=== PATIENT | female | born 1950 | race African-American/Black ===

== ENCOUNTER 2018-11-25 19:35 | Emergency (ER) | payer OTHER ==
[~2018-11-25] VITALS: Ht 157.5 cm; Wt 87.0 kg
[2018-11-26] MEDS ORDERED: ONDANSETRON 4MG ODT PO ONE (01:15)
[2018-11-26] MEDS ORDERED: LOPERAMIDE HCL 2MG CAPSULE PO ONE (01:15)
[2018-11-26 01:42] VITALS: BP 138/77
== END 2018-11-26 01:52 | disposition home or self-care (01) ==
LOC: ER 19:35
DX: R19.7 Diarrhea, unspecified (principal); R11.10 Vomiting, unspecified; I10 Essential (primary) hypertension; Z88.5 Allergy status to narcotic agent; Z98.890 Other specified postprocedural states
CPT/HCPCS: 99283; Q0162